=== PATIENT | female | born 1995 | race Caucasian/White ===

== ENCOUNTER 2018-11-30 03:04 | Emergency (ER) | payer SELFPAY ==
--- NOTE | 2018-11-30 03:39 | ER ---
Nurse's Notes [facility] Name: Kristi Man Age: 22 yrs Sex: Female : 1995 Arrival Date: 11/30/2018 Time: 03:06 Bed 6 Private MD: Diagnosis: Recurrent dislocation of patella, left knee Presentation: 11/30 03:11 Presenting complaint: Patient states: that she was working and she turned the wrong fc way, then her left knee popped out of place. This has happened approx 4 times in the past 3 yrs. Transition of care: patient was not received from another setting of care. Onset of symptoms was November 30, 2018 at 02:30. Risk Assessment: Do you want to hurt yourself or someone else? Patient reports no desire to harm self or others. Initial Sepsis Screen: Does the patient meet any 2 criteria? HR > 90 bpm. Yes Does the patient have a suspected source of infection? No. Patient's initial sepsis screen is negative. Care prior to arrival: None. 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 - Social history:: Smoking status: Patient uses tobacco products, smokes one pack cigarettes per day. Patient uses street drugs, marijuana, Patient/guardian denies using alcohol. - Ebola Screening: : Patient negative for fever greater than or equal to 101.5 degrees Fahrenheit, and additional compatible Ebola Virus Disease symptoms Patient denies exposure to infectious person Patient denies travel to an Ebola-affected area in the 21 days before illness onset. - Family history:: not pertinent. - Hospitalizations: : No recent hospitalization is reported. Screenin:23 Abuse screen: Denies threats or abuse. Nutritional screening: No deficits noted. fc Tuberculosis screening: No symptoms or risk factors identified. Fall Risk None identified. Assessment: 03:21 General: Appears in no apparent distress. uncomfortable, Behavior is calm, cooperative, jd3 appropriate for age. Pain: Complains of pain in left knee Quality of pain is described as aching. Neuro: Level of Consciousness is awake, alert, obeys commands, Oriented to person, place, time, situation, Appropriate for age. Cardiovascular: Capillary refill < 3 seconds Patient's skin is warm and dry. Respiratory: Airway is patent Respiratory effort is even, unlabored, Respiratory pattern is regular, symmetrical. GI: No signs and/or symptoms were reported involving the gastrointestinal system. : No signs and/or symptoms were reported regarding the genitourinary system. EENT: No signs and/or symptoms were reported regarding the EENT system. Derm: Skin is intact, Skin is dry, Skin is normal, Skin temperature is warm. Musculoskeletal: Circulation, motion, and sensation intact. Range of motion: limited in left knee. 03:58 Reassessment: Patient appears in no apparent distress at this time. Patient and/or jd3 family updated on plan of care and expected duration. Pain level reassessed. Patient is alert, oriented x 3, equal unlabored respirations, skin warm/dry/pink. Vital Signs: 03:11 BP 128 / 86; Pulse 92; Resp 18; Temp 97.7(O); Pulse Ox 100% on R/A; Weight 56.7 kg (R); fc Height 5 ft. 7 in. (170.18 cm) (R); Pain 5/10; 03:58 BP 119 / 80; Pulse 79; Resp 17 S; Pulse Ox 100% on R/A; jd3 03:11 Body Mass Index 19.58 (56.70 kg, 170.18 cm) fc ED Course: 03:06 Patient arrived in ED. am2 03:11 Arm band placed on Patient placed in an exam room, on a stretcher. fc 03:12 Jonatan Farfan MD is Attending Physician. rn 03:20 Hai Stanley RN is Primary Nurse. jd3 03:21 Triage completed. fc 03:23 Patient has correct armband on for positive identification. Bed in low position. Call fc light in reach. 03:23 No provider procedures requiring assistance completed. Patient did not have IV access fc during this emergency room visit. 03:50 Knee immobilizer applied on left knee. jd3 Administered Medications: No medications were administered Outcome: 03:39 Discharge ordered by . rn 03:59 Discharged to home ambulatory, with family. jd3 03:59 Condition: stable 03:59 Discharge instructions given to patient, Instructed on discharge instructions, follow up and referral plans. Demonstrated understanding of instructions, follow-up care. 03:59 Patient left the ED. jd3 Signatures: Rosa Samson RN RN Jonatan Meredith MD MD rn Moreno, Amanda am2 Davies, Jonathon, RN RN jwisam Corrections: (The following items were deleted from the chart) 03:22 03:21 Musculoskeletal: Circulation, motion, and sensation intact. Range of motion: jd3 intact in all extremities, jd3
--- NOTE | 2018-11-30 03:39 | EDPHYS ---
Physician Documentation [facility] Name: Kristi Man Age: 22 yrs Sex: Female : 1995 Arrival Date: 11/30/2018 Time: 03:06 Bed 6 Private MD: ED Physician Jonatan Farfan HPI: 11/30 03:36 This 22 yrs old Female presents to ER via Wheelchair with complaints of Knee rn Pain. 03:36 The patient presents with pain. The complaints affect the left knee. Onset: The rn symptoms/episode began/occurred at an unknown time. Modifying factors: The symptoms are alleviated by nothing. the symptoms are aggravated by bending knee. The patient has experienced similar episodes in the past. Reports having recurrent knee cap dislocations, happens with bending and rotation of knee, currently not dislocated, has been happening on and off for 4 years, wante dto get it checked out tonight because happening more often. . 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 - Social history:: Smoking status: Patient uses tobacco products, smokes one pack cigarettes per day. Patient uses street drugs, marijuana, Patient/guardian denies using alcohol. - Ebola Screening: : Patient negative for fever greater than or equal to 101.5 degrees Fahrenheit, and additional compatible Ebola Virus Disease symptoms Patient denies exposure to infectious person Patient denies travel to an Ebola-affected area in the 21 days before illness onset. - Family history:: not pertinent. - Hospitalizations: : No recent hospitalization is reported. ROS: 03:36 Constitutional: Negative for fever, chills, and weight loss, MS/Extremity: + rn dislocation of left patella Exam: 03:36 Constitutional: This is a well developed, well nourished patient who is awake, alert, rn and in no acute distress. MS/ Extremity: Pulses equal, no cyanosis. Neurovascular intact. Full, normal range of motion. Equal circumference. Increased mobility of left patella compared to right Vital Signs: 03:11 BP 128 / 86; Pulse 92; Resp 18; Temp 97.7(O); Pulse Ox 100% on R/A; Weight 56.7 kg (R); fc Height 5 ft. 7 in. (170.18 cm) (R); Pain 5/10; 03:58 BP 119 / 80; Pulse 79; Resp 17 S; Pulse Ox 100% on R/A; jd3 03:11 Body Mass Index 19.58 (56.70 kg, 170.18 cm) MDM: 03:12 Patient medically screened. rn 03:36 Differential diagnosis: dislocation. Data reviewed: vital signs, nurses notes, and as a rn result, I will discharge patient. Counseling: I had a detailed discussion with the patient and/or guardian regarding: the historical points, exam findings, and any diagnostic results supporting the discharge/admit diagnosis, the need for outpatient follow up, to return to the emergency department if symptoms worsen or persist or if there are any questions or concerns that arise at home. Special discussion: I discussed with the patient/guardian in detail that at this point there is no indication for admission to the hospital. It is understood, however, that if the symptoms persist or worsen the patient needs to return immediately for re-evaluation. Based on the history and exam findings, there is no indication for further emergent testing or inpatient evaluation. I discussed with the patient/guardian the need to see the orthopedic surgeon for further evaluation of the symptoms. 11/30 03:35 Order name: Knee Immobilizer; Complete Time: 03:50 rn Administered Medications: No medications were administered Disposition: 11/30/18 03:39 Discharged to Home. Impression: Recurrent dislocation of patella, left knee. - Condition is Stable. - Discharge Instructions: Patellar Dislocation. - Medication Reconciliation Form, Thank You Letter, Antibiotic Education, Prescription Opioid Use, Work release form form. - Follow up: Private Physician; When: As needed; Reason: Recheck today's complaints, Re-evaluation by your physician. - Problem is an ongoing problem. - Symptoms have improved. Signatures: Rosa Samson RN RN Jonatan Farfan MD MD rn Davies, Jonathon, RN RN jd3 Corrections: (The following items were deleted from the chart) 03:59 03:39 11/30/2018 03:39 Discharged to Home. Impression: Recurrent dislocation of jd3 patella, left knee. Condition is Stable. Forms are Medication Reconciliation Form, Thank You Letter, Antibiotic Education, Prescription Opioid Use. Follow up: Private Physician; When: As needed; Reason: Recheck today's complaints, Re-evaluation by your physician. Problem is an ongoing problem. Symptoms have improved. rn
== END 2018-11-30 03:59 | disposition home or self-care (01) ==
LOC: ER 03:04
DX: M22.02 Recurrent dislocation of patella, left knee (principal)
CPT/HCPCS: 99283